=== PATIENT | female | born 2005 | race Caucasian/White ===

== ENCOUNTER 2024-07-18 07:43 | Outpatient (CLI) | payer OTHER, SELFPAY ==
--- NOTE | ~2024-07-18 | XR_ITS ---
EXAMINATION: XR chest 2V DATE: 07/18/2024 08:29 INDICATION: Shortness of breath TECHNIQUE: PA and lateral views of the chest were obtained. COMPARISON: Chest radiograph dated 04/16/2009 FINDINGS: The lungs are clear with no focal airspace opacities, pulmonary edema, pleural effusion or pneumothor ax. The cardiomediastinal silhouette is normal. Visualized bones and soft tissues are unremarkable. IMPRESSION: 1. Normal chest radiograph. Reviewed, dictated and finalized at location B. [facility] IMPRESSION: 1. Normal chest radiograph.
--- NOTE | 2024-07-18 08:16 | PCRCNOTE ---
Patient could not complete Pulmonary Function Test. Many attempts were tried with good coaching. Patient unable to do.
== END 2024-07-18 07:44 | disposition home or self-care (01) ==
PROVIDERS: PCP Family Medicine; Visit Provider Student in an Organized Health Care Education/Training Program
DX: R06.02 Shortness of breath (principal); R07.9 Chest pain, unspecified
CPT/HCPCS: 71046

== ENCOUNTER 2024-10-08 08:58 | Outpatient (CLI) | payer OTHER, SELFPAY ==
--- NOTE | 2024-10-08 09:14 | ECG_ITS ---
Test Date: 2024-10-08 09:24:34 Measurements Intervals [place] Rate: 79 P: 70 [place]: 151 QRS: 83 QRSD: 89 T: 56 QT: 368 QTc: 424 Interpretive Statements SINUS RHYTHM POSSIBLE LEFT ATRIAL ENLARGEMENT [-0.1mV P-WAVE IN V1/V2] BORDERLINE ECG No previous ECG available for comparison Electronically Signed On 10-08-2024 12:29:42 CDT by Arden Aburto M.D.
--- OUTSIDE RECORDS SUMMARY | 2024-10-08 09:42 | XMS_ITS | Clinical Summary ---
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 This disclosure is being madepursuant to the Care Everywhere program and may not contain all information available regarding this patient. Last updated 18.[email or web address] Allergies No known active allergies Medications Be aware that medications may not be up to date on this document. Always verify current medications with the patient. No known medications Social History Tobacco Use Types Packs/Day Years Used Date Smoking Tobacco: Never Smokeless Tobacco: Never Comments:non smoking home Sex and Gender Information Value Date Recorded Sex Assigned at Not on file Gender Identity Not on file Sexual Orientation Not on file Last Filed Vital Signs Vital Sign Reading Time Taken Comments Blood Pressure 110/72 05/12/2017 10:50 AM CDT Pulse 71 05/12/2017 10:50 AM CDT Temperature 36.5 C (97.7 F) 05/12/2017 10:50 AM CDT Respiratory Rate 16 05/12/2017 10:50 AM CDT Oxygen Saturation 97% 05/12/2017 10:50 AM CDT Inhaled Oxygen Concentration - - Weight 51.7 kg (114 lb) 05/12/2017 10:50 AM CDT Height 157.5 cm (5' 2 ) 05/12/2017 10:50 AM CDT Body Mass Index 20.85 05/12/2017 10:50 AM CDT Body Mass Index Percentile 77.39% 05/12/2017 10: 50 AM CDT Growth Chart: [facility] (Girls, 2- 20 Years) Plan of Treatment Health Maintenance Due Date Last Done Comments HIV SCREENING 11/29/2019 HPV VACCINE (1 - 3-dose series) 11/29/2019 CHLAMYDIA/GONORRHEA SCREENING 2020 MENINGOCOCCAL (Group B) VACC INE SHARED DECISION-MAKING (1 of 2 - Standard) 2020 HEPATITIS C SCREENING 11/24/2022 DTAP/TDAP/TD VACCINES (1 - Tdap) 11/29/2023 HEPATITIS B VACCINE (1 of 3 - 19+ 3-dose series) 11/29/2023 COVID-19 VACCINE (1 - 2023-2 5 season) 2024 INFLUENZA VACCINE (#1) 2024 DEPRESSION SCREENING 07/23/2024 ZOSTER VACCINE (1 of 2) 2054 HIB VACCINE Aged Out No longer eligi ble based on patient's age to complete this topic MENINGOCOCCAL GROUPS A/C/Y/W VACCINE Aged Out No longer eligible b ased on patient's age to complete this topic PNEUMOCOCCAL VACCINE Aged Out No long er eligible based on patient's age to complete this topic Care Teams Crane Hoist Or Lift Operator Relationship Specialty Start Date End Date Flaquito Dillon MD [address] [place] [address] PCP - General Pediatrics 05/12/17
== END 2024-10-08 08:59 | disposition home or self-care (01) ==
PROVIDERS: PCP Family Medicine; Visit Provider Student in an Organized Health Care Education/Training Program
DX: R07.9 Chest pain, unspecified (principal); R94.31 Abnormal electrocardiogram [ECG] [EKG]
CPT/HCPCS: 93005